=== PATIENT | female | born 1955 | race Caucasian/White ===

== ENCOUNTER → 2016-07-21 | Outpatient (CLI) | payer OTHER ==
--- NOTE | 2016-07-25 18:41 | MA ---
Digital Bilateral Mammograms History: Routine screening. Technique: Digital oblique and cephalocaudal views, with computer-aided detection (iCAD). Findings: Comparisons: 2016, 2015, 2014. Breast density B. There are no masses, no suspicious calcif ications, and no secondary signs of malignancy. Bilateral calcifications are unchanged. Impression: Benign findings. BI-RADS Category 2. Recommendation: Bilateral screening mammograms in on e year. Negative mammography should not preclude additional workup of any clinically suspicious area. [facility] will send a letter of results to the patient. The patient's information is entered into a reminder system with a due date for her next mammogram.
== END ==
LOC: BRMIMAGING 14:45
DX: Z12.31 Encounter for screening mammogram for malignant neoplasm of breast (principal)
CPT/HCPCS: G0202

== ENCOUNTER → 2017-09-07 | Outpatient (CLI) | payer OTHER | LOC: BRMIMAGING 09:10 | DX: Z12.31 Encounter for screening mammogram for malignant neoplasm of breast (principal); Z80.3 Family history of malignant neoplasm of breast ==